=== PATIENT | female | born 1990 | race Asian ===

== ENCOUNTER 2020-01-11 10:20 | Day surgery (SDC) | payer OTHER ==
[~2020-01-11] VITALS: Ht 152.4 cm; Wt 44.8 kg
[~2020-01-11 10:20] MED LIST: ACETAMINOPHEN 650 MG SUPP PR ONE; CALC500C16 PO; LIDOCAINE 1% MDV 20ML VIAL SQ PRN; LR 1,000 ML IV SCH; NS 1,000 ML IV SCH; OMEG1CAP16 PO; PRENTAB9 PO
[2020-01-11 10:51] LABS: HEMATOCRIT 40.8 % (36.0-47.0); HEMOGLOBIN 13.5 g/dl (12.0-15.5); MEAN CORPUSCULAR HEMOGLOBIN 29.3 pg (27.0-33.0); MEAN CORPUSCULAR HGB CONC 33.1 g/dl (32.0-36.5); MEAN CORPUSCULAR VOLUME 88.5 fl (80.0-96.0); PLATELET COUNT, AUTOMATED 315 10^3/uL (150-450); RED BLOOD COUNT 4.61 10^6/uL (4.00-5.40); WHITE BLOOD COUNT 11.1 10^3/uL (4.0-10.0)
[2020-01-11 11:47] LABS: BLOOD UREA NITROGEN 6 MG/DL (7-18); CALCIUM LEVEL 8.7 MG/DL (8.5-10.1); CARBON DIOXIDE LEVEL 25 MEQ/L (21-32); CHLORIDE LEVEL 106 MEQ/L (98-107); CREATININE FOR GFR 0.48 MG/DL (0.55-1.30); GLOMERULAR FILTRATION RATE > 60.0 (>60); GLUCOSE, FASTING 82 MG/DL (70-100); HCG, SERUM QUANTITATIVE 53530 MIU/ML; POTASSIUM SERUM 3.7 MEQ/L (3.5-5.1); SODIUM LEVEL 137 MEQ/L (136-145)
[2020-01-11] MEDS ORDERED: fentaNYL 100 MCG/2 ML INJECTION (J3010) As Ordered ONE ×2 (12:38→12:44)
[2020-01-11] MEDS ORDERED: LIDOCAINE 2% INJ 100 MG/5 ML SDV (FOR ANES.) As Ordered ONE ×2 (12:38→12:44)
[2020-01-11] MEDS ORDERED: KETOROLAC 60 MG/2 ML VIAL (J1885) As Ordered ONE ×2 (12:38→12:44)
[2020-01-11] MEDS ORDERED: dexameTHASONE 4 MG/ML 1ML VIAL (J1100) As Ordered ONE ×2 (12:38→12:44)
[2020-01-11] MEDS ORDERED: propofoL 200 MG/20 ML VIAL As Ordered ONE ×3 (12:38→12:46)
[2020-01-11] MEDS ORDERED: MIDAZOLAM INJ 2 MG/2 ML VIAL (J2250) As Ordered ONE ×2 (12:38→12:44)
[2020-01-11] MEDS ORDERED: ONDANSETRON 4MG/2ML VIAL (J2405) As Ordered ONE ×2 (12:38→12:44)
[2020-01-11] MEDS ORDERED: ACETAMINOPHEN 650 MG SUPP As Ordered ONE (12:40)
[2020-01-11] MEDS ORDERED: PHENYTOIN 100 MG/2 ML VIAL (J1165) As Ordered ONE (12:57)
[2020-01-11] MEDS ORDERED: OXYTOCIN INJ 10 UNITS/ML VIAL (J2590) As Ordered ONE (12:58)
[2020-01-11] MEDS ORDERED: LR 1,000 ML IV SCH (13:30)
[2020-01-11] MEDS ORDERED: ONDANSETRON 4MG/2ML VIAL (J2405) IV PRN (13:30)
[2020-01-11] MEDS ORDERED: oxyCODONE 5MG TAB PO PRN (13:30)
[2020-01-11 14:10] VITALS: BP 109/69
[2020-01-11] MEDS ORDERED: KETOROLAC 30 MG/ML VIAL (J1885) IV PRN (19:00)
--- NOTE | 2020-01-14 13:06 | RO ---
DATE OF PROCEDURE: 01/11/2020 PREOPERATIVE DIAGNOSIS: Missed (AB). POSTOPERATIVE DIAGNOSIS: Missed AB. OPERATION PROPOSED: Suction curettage. OPERATION PERFORMED: Suction curettage. SURGEON: Dr. Jose Rogers FURNACE KEEPER: ANESTHESIA: Conscious sedation and general anesthetic. ESTIMATED BLOOD LOSS: Less than 25 mL. DESCRIPTION OF PROCEDURE: After adequate time-out, prepped and draped in lithotomy position, sequentials in place. Acetaminophen suppository 1300 mg per rectum. Bladder was drained for 150 mL of clear urine. Weighted speculum in vagina. Single-tooth tenaculum on the anterior lip of the cervix. Uterus sounded to depth of 7 cm dilated with a Najma #9. Curved suction curette applied. Curettage of the cavity was smooth. Uterus replaced in anatomical position, well contracted under Pitocin. The patient is Rh positive, does not require RhoGAM. Sent to recovery in good condition.
== END 2020-01-11 14:41 | disposition home or self-care (01) ==
LOC: M SDC 10:20
PROVIDERS: ATTEND Obstetrics & Gynecology
DX: O02.1 Missed abortion (principal); Z79.899 Other long term (current) drug therapy
CPT/HCPCS: 36415; 59820; 80048; 84702; 85027; 86850; 86900; 86901; 88305; J1100; J1165; J1885; J2250; J2405; J2590; J3010